=== PATIENT | female | born 1965 ===

== ENCOUNTER → 2017-09-10 | Outpatient (CLI) | payer BC, OTHER | LOC: PLD 12:50 → LAB SHORT 12:50 | DX: D17.9 Benign lipomatous neoplasm, unspecified (principal); D22.5 Melanocytic nevi of trunk; D48.5 Neoplasm of uncertain behavior of skin | CPT/HCPCS: 88305 ==

== ENCOUNTER → 2020-09-14 | Outpatient (CLI) | payer BC, OTHER | END | disposition home or self-care (01) | LOC: LAB SHORT 11:14 | DX: D36.14 Benign neoplasm of peripheral nerves and autonomic nervous system of thorax (principal) | CPT/HCPCS: 88305 ==